=== PATIENT | male | born 1965 | race Two or more races ===

== ENCOUNTER → 2024-10-12 | Outpatient (CLI) | payer BC, SELFPAY ==
--- NOTE | 2024-10-12 11:00 | XR_ITS ---
Examination: Pelvic ultrasound, transabdominal, complete Technique: Transabdominal ultrasound of the pelvis performed using grayscale imaging Date and time of exam: October 12, 2024, 1102 hours INDICATIONS: Pelvic pain beginning 2 years ago FINDINGS: No pelvic mass or free fluid in the pelvis Bladder prevoid volume 481.9 cc postvoid volume 88 cc Prostate 4.1 x 3.5 x 4.7 cm volume 35.37 cc no prostate nodules IMPRESSION: Prostate volume 35.37 cc, no prostate nodules
== END | disposition home or self-care (01) ==
PROVIDERS: PCP Physician Assistant; Referring Provider Physician Assistant; Visit Provider Physician Assistant
DX: R10.2 Pelvic and perineal pain (principal)
CPT/HCPCS: 76856

== ENCOUNTER → 2024-11-11 | Outpatient (CLI) | payer BC, SELFPAY ==
--- NOTE | 2024-11-11 10:30 | XR_ITS ---
Examination: Abdomen sonogram, complete Date and time of exam: November 11, 2024 1030 hours INDICATIONS: Upper abdominal pain intermittent beginning 3 years ago. Technique: Multiple real-time grayscale transabdominal sonographic images of the abdomen have been obtained. Findings: Normal gallbladder Normal common bile duct 0.3 cm Pancreatic head 3.2 cm Aorta not enlarged. Liver 12.8 cm fatty infiltration smooth contour no focal liver lesions Normal hepatopedal portal venous flow Patent IVC Right kidney 10.6 cm cortex 1.6 cm Left kidney 9.7 cm cortex 1.9 cm Mild scar formation Spleen 10.0 cm IMPRESSION: Normal gallbladder
== END | disposition home or self-care (01) ==
LOC: CDIM 10:13
PROVIDERS: Referring Provider Physician Assistant; Visit Provider Physician Assistant
DX: R10.9 Unspecified abdominal pain (principal)
CPT/HCPCS: 76700

== ENCOUNTER → 2025-01-05 | Outpatient (CLI) | payer BC, SELFPAY ==
--- NOTE | 2025-01-05 07:30 | XR_ITS ---
Examination: CT abdomen without intravenous contrast. Coronal 2-D reconstructions. Sagittal 2-D reconstructions. Date and time of exam: January 05, 2025, 0740 hours INDICATIONS: Lower abdominal pain beginning 3 months ago CTDI: vol (mGy): 7.33 DLP: (mGycm): 256 Technique: Axial images of the abdomen have been obtained, 3 mm slice thickness, without intravenous contrast 2-D sagittal coronal reconstructions Low dose protocols were performed. One or more of the following dose reduction techniques were used; automated exposure control, adjustment of the mA and/or KV according to patient size, use of iterative reconstruction technique. Findings: No focal liver or splenic lesions No gallstones No pancreatic mass Mild edema in the mesentery for instance axial image 85 Aorta normal size No bowel obstruction Normal appendix Scattered colonic diverticulosis Advanced degenerative disc disease L3-L4 with cortical erosion contiguous endplates IMPRESSION: Edema in the mesentery unclear etiology, recommend CT scan abdomen pelvis post intravenous contrast follow-up Suspicious for discitis osteomyelitis at the L3-L4 level, recommend MRI lumbar spine follow-up pre and postcontrast
== END | disposition home or self-care (01) ==
PROVIDERS: PCP Physician Assistant; Referring Provider Physician Assistant; Visit Provider Physician Assistant
DX: R60.0 Localized edema (principal)
CPT/HCPCS: 74150